=== PATIENT | male | born 1980 | race Two or more races ===

== ENCOUNTER 2020-07-15 10:22 | Emergency (ER) | payer OTHER, SELFPAY ==
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
[2020-07-15 10:31] VITALS: BP 141/83; PULSE 76; RESP 18; TEMP 36.6; O2SAT 97; BMI 26.5
--- NOTE | 2020-07-15 10:39 | XR_ITS ---
EXAMINATION: LUMBAR SPINE, THORACIC SPINE AND LEFT SHOULDER CLINICAL INFORMATION: Pain. COMPARISON: None TECHNIQUE: 3 views lumbar spine. Three-view dorsal spine. 4 views left shoulder. FINDINGS: LUMBAR SPINE: There is normal lumbar lordosis. The vertebral heights, alignment and disc heights are normal. There is no visible acute fracture, dislocation or subluxation. The SI joints are normal. DORSAL SPINE: There is normal thoracic kyphosis. The vertebral heights, alignment and disc heights are normal. There is no visible acute fracture, dislocation or subluxation. The paravertebral soft tissues are normal. LEFT SHOULDER: There is no visible acute fracture, dislocation or subluxation. No bony erosive changes. The soft tissues are normal. XR/XR thoracic spine 2V IMPRESSION: Unremarkable left shoulder exam. Unremarkable dorsal spine exam with no visible acute fracture seen. Unremarkable lumbar spine exam with no acute fracture seen.
--- NOTE | 2020-07-15 10:39 | XR_ITS ---
EXAMINATION: LUMBAR SPINE, THORACIC SPINE AND LEFT SHOULDER CLINICAL INFORMATION: Pain. COMPARISON: None TECHNIQUE: 3 views lumbar spine. Three-view dorsal spine. 4 views left shoulder. FINDINGS: LUMBAR SPINE: There is normal lumbar lordosis. The vertebral heights, alignment and disc heights are normal. There is no visible acute fracture, dislocation or subluxation. The SI joints are normal. DORSAL SPINE: There is normal thoracic kyphosis. The vertebral heights, alignment and disc heights are normal. There is no visible acute fracture, dislocation or subluxation. The paravertebral soft tissues are normal. LEFT SHOULDER: There is no visible acute fracture, dislocation or subluxation. No bony erosive changes. The soft tissues are normal. XR/XR lumbar spine 2-3V IMPRESSION: Unremarkable left shoulder exam. Unremarkable dorsal spine exam with no visible acute fracture seen. Unremarkable lumbar spine exam with no acute fracture seen.
--- NOTE | 2020-07-15 10:39 | XR_ITS ---
EXAMINATION: LUMBAR SPINE, THORACIC SPINE AND LEFT SHOULDER CLINICAL INFORMATION: Pain. COMPARISON: None TECHNIQUE: 3 views lumbar spine. Three-view dorsal spine. 4 views left shoulder. FINDINGS: LUMBAR SPINE: There is normal lumbar lordosis. The vertebral heights, alignment and disc heights are normal. There is no visible acute fracture, dislocation or subluxation. The SI joints are normal. DORSAL SPINE: There is normal thoracic kyphosis. The vertebral heights, alignment and disc heights are normal. There is no visible acute fracture, dislocation or subluxation. The paravertebral soft tissues are normal. LEFT SHOULDER: There is no visible acute fracture, dislocation or subluxation. No bony erosive changes. The soft tissues are normal. XR/XR shoulder LT min 2V IMPRESSION: Unremarkable left shoulder exam. Unremarkable dorsal spine exam with no visible acute fracture seen. Unremarkable lumbar spine exam with no acute fracture seen.
[2020-07-15] MEDS: Ketorolac Tromethamine 30 MG/ML VIAL IM (10:54)
[2020-07-15] MEDS: Lidocaine 4 % Patch ADH..PATCH 2 PATCH TRANSDERMA (10:55)
--- NOTE | 2020-07-15 11:32 | PC.NURSE ---
PT STATING HE NEEDS TO LEAVE, CANT YOU CALL ME WITH MY X RAY RESULTS, IM NOT TRYING TO GET COVID HERE, I HAVE COPD. PROVIDER NOTIFIED.
== END 2020-07-15 11:41 | disposition home or self-care (01) ==
PROVIDERS: Emergency Provider Emergency Medicine; PCP Internal Medicine
DX: S39.012A Strain of muscle, fascia and tendon of lower back, initial encounter (principal); M54.6 Pain in thoracic spine; M25.512 Pain in left shoulder; I10 Essential (primary) hypertension; X58.XXXA Exposure to other specified factors, initial encounter; Y93.9 Activity, unspecified; Y92.9 Unspecified place or not applicable; Y99.9 Unspecified external cause status; Z79.899 Other long term (current) drug therapy
CPT/HCPCS: 72070; 72100; 73030; 96372; 99282; 99284; J1885

== ENCOUNTER 2020-08-13 15:19 | Outpatient (REF) | payer OTHER, SELFPAY | END 2020-08-13 15:20 | disposition home or self-care (01) | LOC: HO.LAB 15:19 | PROVIDERS: Visit Provider Internal Medicine | DX: Z20.828 Contact with and (suspected) exposure to other viral communicable diseases (principal) | CPT/HCPCS: 36415; C9803; U0003 ==

== ENCOUNTER 2020-09-23 12:23 | Emergency (ER) | payer OTHER, SELFPAY ==
--- NOTE | ~2020-09-23 | XR_ITS ---
EXAMINATION: XR LUMBOSACRAL SPINE CLINICAL INFORMATION: Fall, injury COMPARISON: 07/15/2020 TECHNIQUE: AP and lateral views of the lumbar spine with an additional coned down lateral spot view of the lumbosacral junction. FINDINGS: 5 non-rib bearing lumbar type vertebral bodies are seen. The vertebral bodies and posterior elements are normal. The disc spaces are preserved and the vertebral alignment is normal. The paraspinal soft tissues are normal. XR/XR lumbar spine 2-3V IMPRESSION: Normal lumbar spine series.
--- NOTE | ~2020-09-23 | XR_ITS ---
EXAMINATION: XR SHOULDER, LEFT CLINICAL INFORMATION: Fall COMPARISON: 07/15/2020 TECHNIQUE: AP external rotation, Grashey, scapular Y, and axillary views of the left shoulder. FINDINGS: The bones and soft tissues are normal. No fracture. Glenohumeral and acromioclavicular alignment is anatomic with normal joint space. No abnormal soft tissue calcifications. XR/XR shoulder LT min 2V IMPRESSION: Normal left shoulder.
[2020-09-23 12:40] VITALS: BP 129/63; PULSE 84; RESP 18; TEMP 36.4; O2SAT 96; BMI 30.1
--- NOTE | 2020-09-23 13:11 | ED.FALL ---
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 <NICHOLAS Abrams Last Filed: 10/03/20 15:02> Time Seen by Provider: 09/23/20 13:11 <NICHOLAS Abrams Last Filed: 10/03/20 15:02> History of Present Illness HPI Narrative: Patient complains of left shoulder pain and back pain after slip and fall on the stairs is coming down the stairs which were wet slipped fell backwards and hurt his back and left shoulder, no loss of consciousness no neck pain no numbness or weakness, pain is moderate and this happened today <NICHOLAS Abrams Last Filed: 10/03/20 15:02> Related Data Home Medications: Previous Rx's Medication Instructions Recorded acetaminophen [Tylenol Arthritis 650 mg PO Q8H PRN #30 tab 07/15/20 Pain] cyclobenzaprine 10 mg PO TID PRN #10 tab 07/15/20 lidocaine [Lidoderm] 1 patch TOPICAL DAILY #15 ea 07/15/20 naproxen 500 mg PO BID PRN #20 tab 07/15/20 cyclobenzaprine 5 mg PO TID PRN #14 tab 09/23/20 ibuprofen 600 mg PO Q6H PRN #14 tab 09/23/20 oxycodone-acetaminophen [Percocet] 1 tab PO Q6H PRN #10 tab 09/23/20 <NICHOLAS Abrams Last Filed: 10/03/20 15:02> Allergies/Adverse Reactions: Allergies Allergy/AdvReac Type Severity Reaction Status Date / Time No Known Allergies Allergy Verified 10/01/20 14:19 <NICHOLAS Abrams Last Filed: 10/03/20 15:02> Review of Systems Review of Systems: Positive for left shoulder pain and back pain Negatives are no dizziness no weakness no confusion no headache no head injury no loss of consciousness no neck pain no numbness no weakness no paresthesias no chest pain no abdominal pain <NICHOLAS Abrams Last Filed: 10/03/20 15:02> [facility] Past Medical History Source: nursing notes reviewed <NICHOLAS Abrams Last Filed: 10/03/20 15:02> Medical History: Medical History COPD (chronic obstructive pulmonary disease) <NICHOLAS Abrams - Last Filed: 10/03/20 15:02> Social History Social History: Social History Alcohol intake: never Smoking Status: Never smoker Current occupational status: employed Current occupation: CONSTRUCTION <NICHOLAS Abrams - Last Filed: 10/03/20 15:02> Physical Exam Vital Signs: Vital Signs: Last Vital Signs Temp 97.6 F 09/23/20 12:40 Pulse 84 09/23/20 12:40 Resp 18 09/23/20 12:40 BP 129/63 09/23/20 12:40 Pulse Ox 96 09/23/20 12:40 Body Mass Index 30.1 <NICHOLAS Abrams - Last Filed: 10/03/20 15:02> Vital Signs: Last Vital Signs Temp 97.6 F 09/23/20 12:40 Pulse 84 09/23/20 12:40 Resp 18 09/23/20 12:40 BP 129/63 09/23/20 12:40 Pulse Ox 96 09/23/20 12:40 Body Mass Index 30.1 <Gabe Mendoza MD - Last Filed: 10/29/20 16:43> General appearance is no acute distress, cooperative A&O x3 Head is normocephalic atraumatic Neck is supple The chest is clear to auscultation bilaterally, there is no rib tenderness there is no sternum tenderness there is no chest wall tenderness The abdomen is soft nontender The back had diffuse lower lumbar tenderness including midline, the skin was normal without ecchymosis, there was no CVA tenderness there was no bony point tenderness or deformity Extremities the left shoulder had restrictive range of motion on extension abduction and external rotation and there was some tenderness around the deltoid and trapezius area, was neurovascular intact distal, normal in appearance without ecchymosis or laceration or swelling Other extremities were normal Skin no lacerations Neuro no focal deficits <NICHOLAS Abrams - Last Filed: 10/03/20 15:02> Course Course Course Narrative: X-rays of left shoulder and lumbar spine were normal, and patient was discharged with diagnosis of left shoulder sprain and back strain <NICHOLAS Abrams - Last Filed: 10/03/20 15:02> I have reviewed the chart <Gabe Mendoza MD - Last Filed: 10/29/20 16:43> Discharge Plan Discharge Clinical Impression: Sprain of left shoulder, Back pain <NICHOLAS Abrams - Last Filed: 10/03/20 15:02> Patient Disposition: Home, Self-Care <NICHOLAS Abrams - Last Filed: 10/03/20 15:02> Additional Instructions: Follow with orthopedist if needed for left shoulder, follow with primary doctor for back pain if needed Return any concerns X-rays of left shoulder and the back were negative <NICHOLAS Abrams - Last Filed: 10/03/20 15:02> Prescriptions: New cyclobenzaprine 5 mg tablet 5 mg PO TID PRN (Reason: muscle spasm) Qty: 14 RF: 0 oxycodone-acetaminophen [Percocet] 5-325 mg tablet 1 tab PO Q6H PRN (Reason: pain) Qty: 10 RF: 0 ibuprofen 600 mg tablet 600 mg PO Q6H PRN (Reason: pain) Qty: 14 RF: 0 No Action cyclobenzaprine 10 mg tablet 10 mg PO TID PRN (Reason: muscle spasm) Qty: 10 RF: 0 acetaminophen [Tylenol Arthritis Pain] 650 mg tablet extended release 650 mg PO Q8H PRN (Reason: pain) Qty: 30 RF: 0 lidocaine [Lidoderm] 5 % adhesive patch,medicated 1 patch topical DAILY Qty: 15 RF: 0 naproxen 500 mg tablet 500 mg PO BID PRN (Reason: pain) Qty: 20 RF: 0 <NICHOLAS Abrams - Last Filed: 10/03/20 15:02> Referrals: Kris Chiu MD [Physician] - 2 days (Left shoulder pain after fall, x-ray negative) <NICHOLAS Abrams - Last Filed: 10/03/20 15:02> Stand Alone Forms: Work/School Release <NICHOLAS Abrams - Last Filed: 10/03/20 15:02> Interventions: ED Discharge Assessment Last Done: 09/23/20 14:38 <NICHOLAS Abrams - Last Filed: 10/03/20 15:02> Discharge Date/Time: 09/23/20 14:38 <NICHOLAS Abrams - Last Filed: 10/03/20 15:02>
== END 2020-09-23 14:38 | disposition home or self-care (01) ==
PROVIDERS: Emergency Provider Emergency Medicine; PCP Internal Medicine
DX: S43.402A Unspecified sprain of left shoulder joint, initial encounter (principal); W10.8XXA Fall (on) (from) other stairs and steps, initial encounter; M54.9 Dorsalgia, unspecified; Y93.89 Activity, other specified; Y92.018 Other place in single-family (private) house as the place of occurrence of the external cause; Y99.9 Unspecified external cause status
CPT/HCPCS: 72100; 73030; 99283

== ENCOUNTER → 2020-10-01 14:13 | Outpatient (BNVA) | payer OTHER, SELFPAY | PROVIDERS: PCP Internal Medicine; Visit Provider Physician Assistant | DX: M75.52 Bursitis of left shoulder (principal) | CPT/HCPCS: 20610; 99202; J1040 ==

== ENCOUNTER 2020-10-28 08:03 | Outpatient (REF) | payer OTHER, SELFPAY | END 2020-10-28 08:04 | disposition home or self-care (01) | LOC: HO.LAB 08:03 | PROVIDERS: Visit Provider Internal Medicine | DX: Z20.822 Contact with and (suspected) exposure to COVID-19 (principal) | CPT/HCPCS: 36415; C9803; U0003; U0005 ==

== ENCOUNTER 2020-11-05 09:22 | Outpatient (REF) | payer OTHER, SELFPAY ==
[2020-11-05 11:22] LABS: SARS COV2 PCR INHOUSE POSITIVE (Negative)
== END 2020-11-05 09:23 | disposition home or self-care (01) ==
LOC: HO.LAB 09:22
PROVIDERS: Visit Provider Internal Medicine
DX: Z20.822 Contact with and (suspected) exposure to COVID-19 (principal)
CPT/HCPCS: C9803; U0003

== ENCOUNTER 2020-11-17 01:35 | Emergency (ER) | payer OTHER, SELFPAY ==
[2020-11-17 01:45] VITALS: BP 138/71; PULSE 75; RESP 16; TEMP 37; O2SAT 96; BMI 31.5
--- NOTE | 2020-11-17 01:51 | PC.NURSE ---
Pt with +bowel sounds in all four quadrants, non tender abd to palp. Skin WD, resp reg and even.
--- NOTE | 2020-11-17 02:03 | PC.NURSE ---
MD in to bedside for primary eval
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
[2020-11-17] MEDS: Magnesium Hydrox/Alum Hydrox 30 ML ORAL.SUSP PO (02:20)
[2020-11-17] MEDS: Lidocaine HCl Viscous 2 % 15 ML SOLUTION 10 ML MUCOUS MEM (02:20)
--- NOTE | 2020-11-17 02:30 | PC.NURSE ---
Iv access obtained to left ac, labs drawn and sent to lab, results pending. Pt medicated with GI cocktail per oct. Pt already reporting some relief.
[2020-11-17 02:31] LABS: MANUAL DIFF FLAG NO
[2020-11-17 02:32] LABS: Basophils Percent Auto 0.5 % (0-2); Eosinophils Absolute Auto 0.2 X10*3/uL (0.0-0.4); Eosinophils Percent Auto 3.3 % (0-4); Hematocrit 40.1 % (42-52); Hemoglobin 13.6 g/dl (14.0-18.0); Imm Gran Abs Auto 0.02 X10*3/uL (0.00-0.03); Imm Gran Pct Auto 0.3 % (0.0-0.4); Lymphocytes Absolute Auto 1.4 X10*3/uL (1.2-4.9); Lymphocytes Percent Auto 21.3 % (20-40); Mean Corpuscular HGB Conc 33.9 g/dl (31.0-36.0); Mean Corpuscular Volume 91.3 fL (80-98); Mean Platelet Volume 9.1 fL (9.4-12.4); Monocytes Absolute Auto 0.8 X10*3/uL (0.1-1.2); Monocytes Percent Auto 11.3 % (2-11); Neutrophils Absolute Auto 4.2 X10*3/uL (2.0-8.3); Neutrophils Percent Auto 63.3 % (45-73); Platelet Count 223 X10*3/uL (160-400); Red Blood Count 4.39 X10*6/uL (4.60-5.80); Red Cell Distribution Width 12.4 % (11.0-16.0); White Blood Count 6.6 X10*3/uL (4.8-10.8)
[2020-11-17 02:57] LABS: Alanine Aminotransferase 23 U/L (0-40); Albumin Level 4.1 g/dL (3.5-5.0); Alkaline Phosphatase 92 U/L (39-117); Anion Gap 14 (12-20); Aspartate Amino Transferase 23 U/L (5-37); Bilirubin Total 0.4 mg/dL (0.0-1.0); Blood Urea Nitrogen 18 mg/dL (9-16); Calcium 8.5 mg/dL (8.4-10.2); Carbon Dioxide 24 mmol/L (22-29); Chloride 106 mmol/L (96-108); Creatinine Clr Calc Pharmacy 98.5; Estimated Glomerular Filt Rate > 60; Glucose Random 116 mg/dL (60-115); Lipase 95 U/L (8-78); Potassium 3.7 mmol/L (3.3-5.1); Sodium 140 mmol/L (135-145)
[2020-11-17] MEDS: Acetaminophen 325 MG TABLET 975 MG PO (03:17)
[2020-11-17] MEDS: Ibuprofen 400 MG TABLET PO (03:18)
[2020-11-17 03:50] VITALS: BP 119/66; PULSE 69; RESP 16; TEMP 36.7; O2SAT 95
== END 2020-11-17 03:54 | disposition home or self-care (01) ==
PROVIDERS: Emergency Provider Student in an Organized Health Care Education/Training Program; PCP Internal Medicine
DX: K85.90 Acute pancreatitis without necrosis or infection, unspecified (principal); R10.13 Epigastric pain
CPT/HCPCS: 36415; 80053; 83690; 85025; 99283; 99284

== ENCOUNTER 2020-12-03 | Emergency (ER) | payer OTHER, SELFPAY | END 2020-12-03 01:46 | disposition left against medical advice (07) | PROVIDERS: Emergency Provider Emergency Medicine; PCP Internal Medicine | DX: R10.9 Unspecified abdominal pain (principal) ==

== ENCOUNTER 2020-12-17 04:33 | Emergency (ER) | payer OTHER, SELFPAY ==
--- NOTE | ~2020-12-17 | CT_ITS ---
EXAMINATION: CT ABDOMEN AND PELVIS WITH CONTRAST CLINICAL INFORMATION: Epigastric pain COMPARISON: No prior CT for comparison. TECHNIQUE: Multidetector volumetric images were obtained from the superior aspect of the liver through the pubic symphysis following administration 85 mL of Omnipaque 350 intravenous contrast. Sagittal and coronal reformatted images were obtained on the technologist's workstation. Oral contrast: No This CT examination was performed using dose optimization techniques as appropriate, variously including the following: *Automated exposure control *Adjustment of mA and/or kV according to patient size (this includes techniques or standardized protocols for targeted exams where dose is matched to indication/reason for exam; i.e. extremities or head) *Use of iterative reconstruction technique DLP: 698 mGy-cm FINDINGS: LUNG BASES: Bibasilar atelectasis. The visualized cardiac structures are unremarkable. LIVER, GALLBLADDER, AND BILIARY TREE: The liver is normal in size, shape, and attenuation. No focal hepatic lesion or biliary ductal dilatation is present. The gallbladder is contracted with no evidence of radiopaque gallstones, gallbladder wall thickening, or obvious pericholecystic inflammatory changes. PANCREAS: Unremarkable. SPLEEN: Unremarkable. ADRENAL GLANDS: Unremarkable. KIDNEYS AND URETERS: The kidneys are normal in size, shape, and attenuation. No hydronephrosis, hydroureter, or calculi seen. No perinephric stranding. BLADDER: Unremarkable. GASTROINTESTINAL TRACT: Normal distention of the stomach. Normal caliber small bowel without obstruction. There is suggestion of mild wall thickening at the pylorus/first portion of the duodenum. No colonic wall thickening or acute inflammatory change. Normal appendix. No free air or free fluid. ABDOMINAL WALL: No significant hernia is appreciated. LYMPH NODES: Normal. VASCULAR: Unremarkable. PELVIC VISCERA: Normal size prostate with central calcifications. OSSEOUS STRUCTURES: Unremarkable. CT/CT abdomen pelvis w con IMPRESSION: Suggestion of mild wall thickening in the pylorus and first portion of the duodenum. This could be inflammatory or infectious. Ulcer is possible. No free air. Otherwise no acute findings in the abdomen or pelvis. No acute inflammatory changes. Atelectasis at the lung bases.
[2020-12-17 04:39] VITALS: BP 132/89; PULSE 72; RESP 16; TEMP 36.1; O2SAT 98; BMI 31.8
--- NOTE | 2020-12-17 05:00 | ECG_ITS ---
Test Reason : ABDPAIN Blood Pressure : / mmHG Vent. Rate : 064 BPM Atrial Rate : 064 BPM P-R Int : 142 ms QRS Dur : 092 ms QT Int : 412 ms P-R-T Axes : 073 056 028 degrees QTc Int : 425 ms Normal sinus rhythm Normal ECG When compared with ECG of 26-MAR-2019 07:43, No significant change was found Referred By: Gris Hill Electronically Signed By:Juice Gaines
--- NOTE | 2020-12-17 05:02 | ED.ABDPAIN ---
HPI - Abdominal Pain General Chief Complaint: Abdominal Pain Stated Complaint: pancreas pain Time Seen by Provider: 12/17/20 04:50 Source: patient Mode of arrival: ambulatory Limitations: no limitations History of Present Illness HPI narrative: Patient comes emergency room complaining of epigastric pain. Patient states a month ago he was diagnosed with pancreatitis. Patient has been trying to change his diet, avoid using alcohol. Patient had alcohol 3 days ago for mother's Day. Patient denies vomiting or diarrhea. Patient states the pain has been present for a month, however last night it started getting severe. Related Data Previous Rx's Medication Instructions Recorded acetaminophen [Tylenol Arthritis 650 mg PO Q8H PRN #30 tab 07/15/20 Pain] cyclobenzaprine 10 mg PO TID PRN #10 tab 07/15/20 lidocaine [Lidoderm] 1 patch TOPICAL DAILY #15 ea 07/15/20 naproxen 500 mg PO BID PRN #20 tab 07/15/20 cyclobenzaprine 5 mg PO TID PRN #14 tab 09/23/20 ibuprofen 600 mg PO Q6H PRN #14 tab 09/23/20 oxycodone-acetaminophen [Percocet] 1 tab PO Q6H PRN #10 tab 09/23/20 Allergies Allergy/AdvReac Type Severity Reaction Status Date / Time No Known Allergies Allergy Verified 10/01/20 14:19 Review of Systems Review of Systems Constitutional : No Weight loss, No Fever, No Chills, No Night Sweats, No Fatigue, No Malaise ENT/Mouth : No Hearing loss, No Ear Pain, No Nasal Congestion, No Sinus Pain, No Hoarseness, No sore throat, No Rhinorrhea, No Swallowing Difficulty Eyes: No Eye Pain, No Swelling, No Redness, No Foreign Body, No Discharge, No Vision Changes Cardiovascular : No Chest Pain, No SOB, No Dyspnea on Exertion, No Orthopnea, No Edema, No Palpitations Respiratory : No Cough, No Sputum, No Wheezing, No Smoke Exposure, No Dyspnea Gastrointestinal : No Nausea, No Vomiting, No Diarrhea, No Constipation, complaining of epigastric pain, No Hematochezia, No Melena Genitourinary : no irregular bleeding, No Dysuria, No Urinary Frequency, No Hematuria, No Urinary Incontinence, No Urgency, No Flank Pain, No Urinary Flow Changes, No Hesitancy Musculoskeletal : No joint pain, No Myalgias, No Joint Swelling Skin : No Skin Lesions, No rash Neuro : No Weakness, No Numbness, No Paresthesias, No Loss of Consciousness, No Dizziness, No Headache Psych : No Anxiety/Panic, No Depression, No SI/HI/AH/VH, No Social Issues, Heme/Lymph: No Bruising, No Bleeding,No Lymphadenopathy Endocrine : No Polyuria, No Polydipsia, No Temperature Intolerance Physical Exam Vital Signs: Vital Signs: Last Vital Signs Temp 97 F 12/17/20 04:39 Pulse 66 12/17/20 05:34 Resp 18 12/17/20 05:34 BP 139/72 12/17/20 05:34 Pulse Ox 98 12/17/20 05:34 Body Mass Index 31.8 Appearance: Alert. Oriented X3. No acute distress. Eyes: Pupils equal, round and reactive to light. ENT: Pharynx normal. Neck: Normal inspection. Neck supple. No lymph nodes noted. No crepitus CVS: Normal heart rate and rhythm. Pulses normal. Normal S1 and S2 Respiratory: No respiratory distress. Breath sounds normal. No Wheezing. No rales Abdomen: Soft, moderate tenderness to palpation over epigastric area, negative Goins sign. No rigidity. No distention. good BS x4 Skin: Skin warm and dry. Normal skin color. Normal skin turgor. Extremities: No lower extremity edema. No lower extremity edema. No Lacerations. No Rash Neuro: Oriented X 3. No motor deficit. No sensory deficit. Moving all extermities. No slurred speech. Course Course Course Narrative: Lipase and CT pending. Sign out given to Dr. Guadarrama. MDM - Abdominal Pain Lab Data Result diagrams: 12/17/20 05:33 12/17/20 05:32 Labs: Lab Results 12/17/20 12/17/20 Range/Units 05:32 05:33 WBC 7.7 (4.8-10.8) X10*3/uL RBC 4.32 L (4.60-5.80) X10*6/uL Hgb 13.4 L (14.0-18.0) g/dl Hct 39.4 L (42-52) % MCV 91.2 (80-98) fL MCH 31.0 (27.0-33.0) pg MCHC 34.0 (31.0-36.0) g/dl RDW 12.3 (11.0-16.0) % Plt Count 234 (160-400) X10*3/uL MPV 9.5 (9.4-12.4) fL Immature Gran % (Auto) 0.4 (0.0-0.4) % Neut % (Auto) 72.0 (45-73) % Lymph % (Auto) 13.1 L (20-40) % [place] % (Auto) 12.1 H (2-11) % Eos % (Auto) 2.1 (0-4) % Baso % (Auto) 0.3 (0-2) % Lymph # (Auto) 1.0 L (1.2-4.9) X10*3/uL [place] # (Auto) 0.9 (0.1-1.2) X10*3/uL Eos # (Auto) 0.2 (0.0-0.4) X10*3/uL Baso # (Auto) 0.0 (0.0-0.2) X10*3/uL Abs Immat Gran (auto) 0.03 (0.00-0.03) X10*3/uL Absolute Neuts (auto) 5.5 (2.0-8.3) X10*3/uL Absolute Nucleated RBC 0.000 (0.0-0.012) X10*3/uL Nucleated RBC % (auto) 0.0 (0.0-0.2) /100WBC Sodium 139 (135-145) mmol/L Potassium 4.3 (3.3-5.1) mmol/L Chloride 107 (96-108) mmol/L Carbon Dioxide 23 (22-29) mmol/L Anion Gap 13 (12-20) BUN 18 H (9-16) mg/dL Creatinine 1.09 (0.5-1.4) mg/dL Estim Creat Clear Calc 107.1 Estimated GFR > 60 Random Glucose 120 H (60-115) mg/dL Calcium 8.6 (8.4-10.2) mg/dL Total Bilirubin < 0.2 (0.0-1.0) mg/dL Direct Bilirubin < 0.2 (0.0-0.5) mg/dL AST 24 (5-37) U/L ALT 29 (0-40) U/L Alkaline Phosphatase 106 (39-117) U/L Total Protein 6.9 (6.5-8.0) g/dL Albumin 4.0 (3.5-5.0) g/dL Triglycerides 70 mg/dL Cholesterol 155 mg/dL LDL Cholesterol, Calc 92 mg/dl HDL Cholesterol 49 mg/dL ECG Data Attestation: I personally reviewed and interpreted this ECG as follows: (Normal sinus rhythm, heart rate 64, nonspecific [address] segment elevation in leads V4 V5 V6, no reciprocal changes, QTC 425) Discharge Plan Discharge Prescriptions: No Action cyclobenzaprine 10 mg tablet 10 mg PO TID PRN (Reason: muscle spasm) Qty: 10 RF: 0 acetaminophen [Tylenol Arthritis Pain] 650 mg tablet extended release 650 mg PO Q8H PRN (Reason: pain) Qty: 30 RF: 0 lidocaine [Lidoderm] 5 % adhesive patch,medicated 1 patch topical DAILY Qty: 15 RF: 0 naproxen 500 mg tablet 500 mg PO BID PRN (Reason: pain) Qty: 20 RF: 0 cyclobenzaprine 5 mg tablet 5 mg PO TID PRN (Reason: muscle spasm) Qty: 14 RF: 0 oxycodone-acetaminophen [Percocet] 5-325 mg tablet 1 tab PO Q6H PRN (Reason: pain) Qty: 10 RF: 0 ibuprofen 600 mg tablet 600 mg PO Q6H PRN (Reason: pain) Qty: 14 RF: 0 PMFSH Past Medical History Medical History (Updated 12/17/20 @ 05:03 by Gris Hill MD) COPD (chronic obstructive pulmonary disease) Pancreatitis Social History Social History Alcohol intake: current Alcohol intake frequency: a few times a month Smoking Status: Never smoker Advance Directives: No Advance Directives Information Provided: No Current occupational status: employed Current occupation: CONSTRUCTION
[2020-12-17] MEDS: Morphine Sulfate 4 MG/ML CARTRIDGE IVPUSH (05:25)
[2020-12-17] MEDS: 0.9 % Sodium Chloride 1,000 ML 999 ML IVCONT (05:25)
[2020-12-17 05:34] VITALS: BP 139/72; PULSE 66; RESP 18; O2SAT 98
[2020-12-17 05:40] LABS: Basophils Percent Auto 0.3 % (0-2); Eosinophils Absolute Auto 0.2 X10*3/uL (0.0-0.4); Eosinophils Percent Auto 2.1 % (0-4); Hematocrit 39.4 % (42-52); Hemoglobin 13.4 g/dl (14.0-18.0); Imm Gran Abs Auto 0.03 X10*3/uL (0.00-0.03); Imm Gran Pct Auto 0.4 % (0.0-0.4); Lymphocytes Percent Auto 13.1 % (20-40); MANUAL DIFF FLAG NO; Mean Corpuscular Volume 91.2 fL (80-98); Mean Platelet Volume 9.5 fL (9.4-12.4); Monocytes Absolute Auto 0.9 X10*3/uL (0.1-1.2); Monocytes Percent Auto 12.1 % (2-11); Neutrophils Absolute Auto 5.5 X10*3/uL (2.0-8.3); Platelet Count 234 X10*3/uL (160-400); Red Blood Count 4.32 X10*6/uL (4.60-5.80); Red Cell Distribution Width 12.3 % (11.0-16.0); White Blood Count 7.7 X10*3/uL (4.8-10.8)
[2020-12-17 06:21] LABS: Alanine Aminotransferase 29 U/L (0-40); Alkaline Phosphatase 106 U/L (39-117); Anion Gap 13 (12-20); Aspartate Amino Transferase 24 U/L (5-37); Bilirubin Direct < 0.2 mg/dL (0.0-0.5); Bilirubin Total < 0.2 mg/dL (0.0-1.0); Blood Urea Nitrogen 18 mg/dL (9-16); Calcium 8.6 mg/dL (8.4-10.2); Carbon Dioxide 23 mmol/L (22-29); Chloride 107 mmol/L (96-108); Cholesterol 155 mg/dL; Creatinine Clr Calc Pharmacy 107.1; Estimated Glomerular Filt Rate > 60; Glucose Random 120 mg/dL (60-115); HDL Cholesterol 49 mg/dL; LDL Cholesterol Calculated 92 mg/dl; Potassium 4.3 mmol/L (3.3-5.1); Sodium 139 mmol/L (135-145); Total Protein 6.9 g/dL (6.5-8.0); Triglycerides 70 mg/dL
[2020-12-17] MEDS: iohexoL 350 MG/ML 100 ML INFUS..BTL 85 ML IV (06:40)
--- NOTE | 2020-12-17 07:24 | PC.NURSE ---
pt reports feeling better pain at 09/17, pt states that he needs to go home because he needs to be at work at 0800. md henderson
[2020-12-17 07:39] LABS: Lipase 105 U/L (8-78)
== END 2020-12-17 07:40 | disposition home or self-care (01) ==
PROVIDERS: Emergency Medicine; Emergency Provider Emergency Medicine Emergency Medical Services; PCP Internal Medicine
DX: R10.13 Epigastric pain (principal); Z79.899 Other long term (current) drug therapy
CPT/HCPCS: 36415; 74177; 80048; 80061; 80076; 83690; 85025; 93005; 96365; 96375; 99284; J2270; Q9967

== ENCOUNTER 2021-06-29 17:02 | Emergency (ER) | payer OTHER, SELFPAY ==
--- NOTE | ~2021-06-29 | XR_ITS ---
EXAMINATION: XR CHEST CLINICAL INFORMATION: Shortness of breath. COMPARISON: Multiple priors, most recent chest radiograph dated 03/26/2019. TECHNIQUE: Frontal view of the chest was obtained. FINDINGS: The lungs are clear. The cardiomediastinal silhouette is normal in size. There is no pleural effusion or pneumothorax. No acute osseous abnormality. XR/XR chest 1V IMPRESSION: No acute cardiopulmonary findings.
--- NOTE | 2021-06-29 18:50 | ECG_ITS ---
Test Reason : Chest Tightness Blood Pressure : / mmHG Vent. Rate : 115 BPM Atrial Rate : 115 BPM P-R Int : 146 ms QRS Dur : 082 ms QT Int : 328 ms P-R-T Axes : 073 068 060 degrees QTc Int : 453 ms Sinus tachycardia Otherwise normal ECG When compared with ECG of 17-DEC-2020 06:03, Vent. rate has increased BY 51 BPM Referred By: Generic ED Physician Electronically Signed By:KINGSLEY VINSON MD
[2021-06-29 19:07] VITALS: BP 138/73; PULSE 91; RESP 18; TEMP 36.6; O2SAT 93; BMI 31.5
--- NOTE | 2021-06-29 20:03 | ED_ITS ---
HPI - URI/Sore Throat General Chief Complaint: Upper Respiratory Symptoms Stated Complaint: Difficulty breathing/Chest tightness Time Seen by Provider: 06/29/21 19:59 Source: patient Mode of arrival: ambulatory Limitations: no limitations History of Present Illness HPI Narrative: 41-year-old male with a history of COPD, hypothyroidism here with complaints of shortness of breath with chest tightness and wheezing with a dry cough for the last few days. No fevers or chills. Cough is not productive. No leg swelling or pain or weight gain. Patient tells me that he was working with some chemicals at work and feels like this may have triggered his symptoms. Related Data Previous Rx's Medication Instructions Recorded acetaminophen 650 mg 650 mg PO Q8H PRN #30 tab 07/15/20 tablet,extended release (Tylenol Arthritis Pain) cyclobenzaprine 10 mg tablet 10 mg PO TID PRN #10 tab 07/15/20 lidocaine 5 % topical patch 1 patch TOPICAL DAILY #15 ea 07/15/20 (Lidoderm) naproxen 500 mg tablet 500 mg PO BID PRN #20 tab 07/15/20 cyclobenzaprine 5 mg tablet 5 mg PO TID PRN #14 tab 09/23/20 ibuprofen 600 mg tablet 600 mg PO Q6H PRN #14 tab 09/23/20 oxycodone-acetaminophen 5 mg-325 1 tab PO Q6H PRN #10 tab 09/23/20 mg tablet (Percocet) prednisone 20 mg tablet 40 mg PO DAILY #8 tab 06/29/21 Allergies Allergy/AdvReac Type Severity Reaction Status Date / Time No Known Allergies Allergy Verified 10/01/20 14:19 Review of Systems Review of Systems: Yes all other systems are reviewed and are negative Constitutional: Constitutional: Reports no additional constitutional complaints, Denies body ache(s), Denies chills, Denies fever(s), Denies headache(s) and Denies weakness Eyes: Eyes: Reports no additional eye complaints and Denies change in vision ENT: Reports system reviewed and no additional complaints, except as documented, Denies dizziness, Denies headache(s), Denies nasal congestion, Denies nasal discharge and Denies neck pain Cardiovascular: Cardiovascular: Reports no additional cardiovascular complaints, Reports chest pain (chest tightness), Denies leg edema and Reports dyspnea Respiratory: Respiratory: Reports no additional respiratory complaints, Rep orts cough, Reports dyspnea and Reports wheezing Gastrointestinal: Gastrointestinal: Reports no additional gastrointestinal complaints, Denies abdominal pain, Denies diarrhea, Denies nausea and Denies vomiting Genitourinary: Genitourinary: Denies urinary incontinence Musculoskeletal: Musculoskeletal: Reports no additional musculoskeletal complaints, Denies back pain, Denies arthralgias, Denies joint swelling, Denies neck pain, Denies numbness and Denies tingling Integumentary/Breasts: Skin/Breast: Reports system reviewed and no additional complaints, except as docu and Denies rash Neurologic: Denies Abnormal speech present, Denies dizziness, Denies headache(s), Denies numbness, Denies tingling and Denies weakness Allergic/Immunologic: Allergic/Immunologic: Reports wheezing PMFSH Past Medical History Attestation statement: The following information was validated with the patient. Source: old records reviewed and nursing notes reviewed Medical History COPD (chronic obstructive pulmonary disease) Pancreatitis Social History Social History Alcohol intake: current Alcohol intake frequency: does not drink Advance Directives: No Current occupational status: employed Current occupation: CONSTRUCTION Physical Exam Vital Signs: Vital Signs: Last Vital Signs Temp 98.4 F 06/29/21 21:39 Pulse 84 06/29/21 21:39 Resp 18 06/29/21 21:39 BP 132/72 06/29/21 21:39 Pulse Ox 98 06/29/21 21:39 Body Mass Index 31.5 Const: General: cooperative, healthy appearing, comfortable and no acute distress Orientation/consciousness: patient oriented x3 Limitations: no limitations HENMT: Head: Yes normal to inspection Ears: hearing grossly normal bilaterally and TM's normal bilaterally General nose exam: Normal external nose present Face and sinus: Yes normal facial exam Mouth: Normal oral and palatal mucosa present Throat: Yes posterior oropharynx normal, Yes tonsils normal and Yes uvula midline Eyes: General: appearance normal, both eyes and all related structures Pupils: Equal, round and reactive pupils present Neck: Neck: Yes normal visual inspection, Yes full ROM and Yes no lymphadenopathy Chest: Chest palpation & inspection: normal inspection of the chest Resp: Other: Diminished breath sounds throughout with mild expiratory wheezing +wheezing Effort & Inspection: normal respiratory effort Cardio: Rate: regular rate Rhythm: regular rhythm Peripheral pulses: Peripheral pulses 2+ throughout GI: Inspection: Yes normal to inspection Palpation (GI): Soft to palpation and nontender Auscultation: normal bowel sounds Back/Spine/Pelvis: Thoracic/Lumbar Spine: thoracic and lumbar spine normal to inspection Skin: General skin exam: no rashes or lesions noted Neuro: General: patient oriented x3, no focal motor deficits and normal sensation to monofilament Cranial nerves: Yes Equal, round and reactive pupils present Cognition (Neuro): normal cognition Speech: No Abnormal speech present Gait exam (Neuro): Normal gait present Motor exam (neuro): 5/5 motor strength present throughout Extrem: General: Yes normal to inspection, Yes no pedal edema and Yes no calf tenderness Course Course Course Narrative: 41-year-old male here with complaints of COPD exacerbation for the last few days triggered by exposure to some chemicals at work. On arrival the patient has diminished breath sounds with expiratory wheezing and audible wheezing on arrival. His room air saturation is 92%. Will check chest x-ray, COVID screen. Will give DuoNeb, IV Solu-Medrol and magnesium and reassess 2130- chest x-ray, labs, COVID screen, EKG are all unremarkable. Patient is feeling much improved and is ambulating around the department with oxygen satur ations greater than 96%. Likely COPD exacerbation. Will discharge home with course of prednisone. Patient tells me he has adequate albuterol at home. Reviewed worrisome signs and symptoms of when to return to the emergency department. Comfortable discharge home. MDM - URI/Sore Throat MDM Narrative Medical decision making narrative: pneumonia, COPD exacerbation Differential Diagnosis Differential diagnosis: Likely viral infection Medical Records Attestation: I reviewed the patient's medical records. Lab Data Attestation: I reviewed the patient's lab results. Result diagrams: 06/29/21 20:18 06/29/21 20:18 Labs: Lab Results 06/29/21 06/29/21 06/29/21 Range/Units 20:14 20:18 20:18 WBC 9.4 (4.8-10.8) X10*3/uL RBC 4.39 L (4.60-5.80) X10*6/uL Hgb 13.2 L (14.0-18.0) g/dl Hct 38.9 L (42.0-52.0) % MCV 88.6 (80.0-98.0) fL MCH 30.1 (27.0-33.0) pg MCHC 33.9 (31.0-36.0) g/dl RDW 13.2 (11.0-16.0) % Plt Count 239 (160-400) X10*3/uL MPV 9.6 (9.4-12.4) fL Immature Gran % (Auto) 0.3 (0.0-0.4) % Neut % (Auto) 77.0 H (45-73) % Lymph % (Auto) 11.7 L (20-40) % Vill[place]ba % (Auto) 9.4 (2-11) % Eos % (Auto) 1.3 (0-4) % Baso % (Auto) 0.3 (0-2) % Lymph # (Auto) 1.1 L (1.2-4.9) X10*3/uL [place] # (Auto) 0.9 (0.1-1.2) X10*3/uL Eos # (Auto) 0.1 (0.0-0.4) X10*3/uL Baso # (Auto) 0.0 (0.0-0.2) X10*3/uL Abs Immat Gran (auto) 0.03 (0.00-0.03) X10*3/uL Absolute Neuts (auto) 7.2 (2.0-8.3) x10*3/uL Absolute Nucleated RBC 0.000 (0.0-0.012) X10*3/uL Nucleated RBC % (auto) 0.0 (0.0-0.2) /100WBC Sodium 140 (135-145) mmol/L Potassium 3.9 (3.3-5.1) mmol/L Chloride 109 H (96-108) mmol/L Carbon Dioxide 24 (22-29) mmol/L Anion Gap 11 L (12-20) BUN 11 (9-16) mg/dL Creatinine 1.26 (0.5-1.4) mg/dL Estim Creat Clear Calc 91.3 Estimated GFR > 60 Random Glucose 120 H (60-115) mg/dL Calcium 8.8 (8.4-10.2) mg/dL Troponin I High Sens (<3.5-35.0) ng/L COVID-19 (ANJU) Negative (Negative) COVID-19 Clin Com See Note 06/29/21 Range/Units 20:18 WBC (4.8-10.8) X10*3/uL RBC (4.60-5.80) X10*6/uL Hgb (14.0-18.0) g/dl Hct (42.0-52.0) % MCV (80.0-98.0) fL MCH (27.0-33.0) pg MCHC (31.0-36.0) g/dl RDW (11.0-16.0) % Plt Count (160-400) X10*3/uL MPV (9.4-12.4) fL Immature Gran % (Auto) (0.0-0.4) % Neut % (Auto) (45-73) % Lymph % (Auto) (20-40) % [place] % (Auto) (2-11) % Eos % (Auto) (0-4) % Baso % (Auto) (0-2) % Lymph # (Auto) (1.2-4.9) X10*3/uL [place] # (Auto) (0.1-1.2) X10*3/uL Eos # (Auto) (0.0-0.4) X10*3/uL Baso # (Auto) (0.0-0.2) X10*3/uL Abs Immat Gran (auto) (0.00-0.03) X10*3/uL Absolute Neuts (auto) (2.0-8.3) x10*3/uL Absolute Nucleated RBC (0.0-0.012) X10*3/uL Nucleated RBC % (auto) (0.0-0.2) /100WBC Sodium (135-145) mmol/L Potassium (3.3-5.1) mmol/L Chloride (96-108) mmol/L Carbon Dioxide (22-29) mmol/L Anion Gap (12-20) BUN (9-16) mg/dL Creatinine (0.5-1.4) mg/dL Estim Creat Clear Calc Estimated GFR Random Glucose (60-115) mg/dL Calcium (8.4-10.2) mg/dL Troponin I High Sens 6.4 (<3.5-35.0) ng/L COVID-19 (ANJU) (Negative) COVID-19 Clin Com Imaging Data Chest x-ray: Attestation: I personally reviewed and interpreted this imaging study as follows: Radiologist's impression: EXAMINATION: XR CHEST CLINICAL INFORMATION: Shortness of breath. COMPARISON: Multiple priors, most recent chest radiograph dated 03/26/2019. TECHNIQUE: Frontal view of the chest was obtained. FINDINGS: The lungs are clear. The cardiomediastinal silhouette is normal in size. There is no pleural effusion or pneumothorax. No acute osseous abnormality. XR/XR chest 1V IMPRESSION: No acute cardiopulmonary findings. ECG Data Attestation: I personally reviewed and interpreted this ECG as follows: ECG interpretation date: 06/29/21 ECG interpretation time: 17:20 Interpretation: sinus tachycardia with a rate of 115, normal GA, normal QRS, normal QT Discharge Plan Discharge Clinical Impression: COPD (chronic obstructive pulmonary disease) Patient Disposition: Home, Self-Care Instructions: COPD (Chronic Obstructive Pulmonary Disease) (ED) Additional Instructions: start prednisone tomorrow continue your inhaler your COVID test was negative your blood work an EKG and chest x-ray were all normal Prescriptions: New prednisone 20 mg tablet 40 mg PO DAILY Qty: 8 RF: 0 No Action cyclobenzaprine 10 mg tablet 10 mg PO TID PRN (Reason: muscle spasm) Qty: 10 RF: 0 acetaminophen [Tylenol Arthritis Pain] 650 mg tablet extended release 650 mg PO Q8H PRN (Reason: pain) Qty: 30 RF: 0 lidocaine [Lidoderm] 5 % adhesive patch,medicated 1 patch topical DAILY Qty: 15 RF: 0 naproxen 500 mg tablet 500 mg PO BID PRN (Reason: pain) Qty: 20 RF: 0 cyclobenzaprine 5 mg tablet 5 mg PO TID PRN (Reason: muscle spasm) Qty: 14 RF: 0 oxycodone-acetaminophen [Percocet] 5-325 mg tablet 1 tab PO Q6H PRN (Reason: pain) Qty: 10 RF: 0 ibuprofen 600 mg tablet 600 mg PO Q6H PRN (Reason: pain) Qty: 14 RF: 0 Referrals: Osmany Cortés MD [Primary Care Provider] - 2 days Stand Alone Forms: Work/School Release Interventions: ED Discharge Assessment Last Done: 06/29/21 21:38 Discharge Date/Time: 06/29/21 21:40
[2021-06-29 20:11] VITALS: BP 131/78; PULSE 83; RESP 18; TEMP 36.4; O2SAT 96
[2021-06-29 20:20] VITALS: PULSE 90; O2SAT 97
[2021-06-29] MEDS: Albuterol/Iprat 2.5/0.5MG 3 ML AMPUL.NEB INHALE (20:20)
[2021-06-29] MEDS: methylPREDNISolone Sod Succ 125 MG/2 ML VIAL IVPUSH (20:20)
[2021-06-29] MEDS: Magnesium Sulfate/H2O 2 GM/50 ML PIGGYBACK IV (20:20)
[2021-06-29 20:22] LABS: MANUAL DIFF FLAG NO
[2021-06-29 20:26] LABS: Basophils Percent Auto 0.3 % (0-2); Eosinophils Absolute Auto 0.1 X10*3/uL (0.0-0.4); Eosinophils Percent Auto 1.3 % (0-4); Hematocrit 38.9 % (42.0-52.0); Hemoglobin 13.2 g/dl (14.0-18.0); Imm Gran Abs Auto 0.03 X10*3/uL (0.00-0.03); Imm Gran Pct Auto 0.3 % (0.0-0.4); Lymphocytes Absolute Auto 1.1 X10*3/uL (1.2-4.9); Lymphocytes Percent Auto 11.7 % (20-40); Mean Corpuscular HGB Conc 33.9 g/dl (31.0-36.0); Mean Corpuscular Hemoglobin 30.1 pg (27.0-33.0); Mean Corpuscular Volume 88.6 fL (80.0-98.0); Mean Platelet Volume 9.6 fL (9.4-12.4); Monocytes Absolute Auto 0.9 X10*3/uL (0.1-1.2); Monocytes Percent Auto 9.4 % (2-11); Neutrophils Absolute Auto 7.2 x10*3/uL (2.0-8.3); Platelet Count 239 X10*3/uL (160-400); Red Blood Count 4.39 X10*6/uL (4.60-5.80); Red Cell Distribution Width 13.2 % (11.0-16.0); White Blood Count 9.4 X10*3/uL (4.8-10.8)
[2021-06-29 20:39] LABS: Anion Gap 11 (12-20); Blood Urea Nitrogen 11 mg/dL (9-16); Calcium 8.8 mg/dL (8.4-10.2); Carbon Dioxide 24 mmol/L (22-29); Chloride 109 mmol/L (96-108); Creatinine Clr Calc Pharmacy 91.3; Estimated Glomerular Filt Rate > 60; Glucose Random 120 mg/dL (60-115); Potassium 3.9 mmol/L (3.3-5.1); Sodium 140 mmol/L (135-145)
[2021-06-29 20:41] LABS: COVID-19 Test Negative (Negative)
[2021-06-29 20:47] LABS: Troponin-I High Sensitivity 6.4 ng/L (<3.5-35.0)
[2021-06-29 21:39] VITALS: BP 132/72; PULSE 84; RESP 18; TEMP 36.9; O2SAT 98
== END 2021-06-29 21:40 | disposition home or self-care (01) ==
PROVIDERS: Emergency Provider Emergency Medicine; PCP Internal Medicine
DX: J44.9 Chronic obstructive pulmonary disease, unspecified (principal); Z20.822 Contact with and (suspected) exposure to COVID-19; R06.02 Shortness of breath
CPT/HCPCS: 36415; 71045; 80048; 84484; 85025; 87635; 93005; 96365; 96366; 96375; 99284; J2930; J3475

== ENCOUNTER 2022-02-26 07:06 | Outpatient (REF) | payer OTHER, SELFPAY ==
[2022-02-26 08:20] LABS: COVID-19 Test Negative (Negative)
== END 2022-02-26 07:07 | disposition home or self-care (01) ==
LOC: HO.LAB 07:06
PROVIDERS: Visit Provider Internal Medicine
DX: Z20.822 Contact with and (suspected) exposure to COVID-19 (principal)
CPT/HCPCS: 87635; C9803

== ENCOUNTER 2023-02-20 23:59 | Emergency (ER) | payer OTHER, SELFPAY ==
--- NOTE | ~2023-02-20 | XR_ITS ---
EXAMINATION: XR SHOULDER, RIGHT CLINICAL INFORMATION: Shoulder pain x5 days COMPARISON: None available. TECHNIQUE: AP external rotation, Grashey, scapular Y, and axillary views of the right shoulder. FINDINGS: The bones and soft tissues are unremarkable aside from some mild degenerative changes at the AC joint. No fracture. Glenohumeral and acromioclavicular alignment is anatomic. Glenohumeral joint appears normal. No abnormal soft tissue calcifications. XR/XR shoulder RT min 2V IMPRESSION: Mild degenerative changes at the AC joint.
[2023-02-21 00:04] VITALS: BP 148/82; PULSE 62; RESP 16; TEMP 36.1; O2SAT 95; BMI 27.5
--- NOTE | 2023-02-21 00:45 | ED_ITS ---
HPI - Extremity Problem General Chief complaint: Extremity Injury, Upper Stated complaint: Shoulder pain Time Seen by Provider: 02/21/23 00:44 Source: patient and RN notes reviewed Mode of arrival: ambulatory Limitations: no limitations History of Present Illness HPI Narrative: 43-year-old male presents for evaluation of right shoulder pain. Denies any trauma to the area. He reports that he woke up with the pain 5 days ago. His pain is 10/10 it is now ?keeping me from sleeping. ? Denies any fevers or chills. Related Data Previous Rx's Medication Instructions Recorded acetaminophen 650 mg 650 mg PO Q8H PRN pain #30 tabs 07/15/20 tablet,extended release (Tylenol Arthritis Pain) cyclobenzaprine 10 mg tablet 10 mg PO TID PRN muscle spasm #10 07/15/20 tabs lidocaine 5 % topical patch 1 patch topical DAILY #15 ea 07/15/20 (Lidoderm) naproxen 500 mg tablet 500 mg PO BID PRN pain #20 tabs 07/15/20 cyclobenzaprine 5 mg tablet 5 mg PO TID PRN muscle spasm #14 09/23/20 tabs ibuprofen 600 mg tablet 600 mg PO Q6H PRN pain #14 tabs 09/23/20 oxycodone-acetaminophen 5 mg-325 1 tab PO Q6H PRN pain #10 tabs 09/23/20 mg tablet (Percocet) prednisone 20 mg tablet 40 mg PO DAILY #8 tabs 06/29/21 oxycodone 5 mg tablet 5 mg PO Q6H PRN severe pain (scale 02/21/23 score 7-10) #12 tabs Allergies Allergy/AdvReac Type Severity Reaction Status Date / Time No Known Allergies Allergy Verified 02/21/23 00:04 Review of Systems Cardiovascular: Cardiovascular: Denies chest pain and Denies chest pain at rest Musculoskeletal: Musculoskeletal: Reports arthralgias, Denies joint swelling and Reports limited range of motion PMFSH Past Medical History Medical History COPD (chronic obstructive pulmonary disease) Pancreatitis Social History Social History Alcohol intake: current Alcohol intake frequency: does not drink Current occupational status: employed Current occupation: CONSTRUCTION Physical Exam Vital Signs: Vital Signs: Last Vital Signs Temp 97.0 F 02/21/23 00:04 Pulse 62 02/21/23 00:04 Resp 16 02/21/23 00:04 BP 148/82 H 02/21/23 00:04 Pulse Ox 95 02/21/23 00:04 O2 Del Method Room Air 02/21/23 00:04 BMI result Body Mass Index 27.5 Const: General: healthy appearing, comfortable, no acute distress, alert and awake Nutritional Appearance: well nourished Orientation/consciousness: patient oriented x3 HEENT: Head: Yes normocephalic and Yes atraumatic Eyes: Eyelids: Yes eyelids normal Conjunctivae: conjunctivae normal Sclerae: sclerae normal Corneas: corneas normal Pupils: Equal, round and reactive pupils present EOM: EOMs intact bilaterally Neck: Neck: Yes full ROM Resp: Effort & Inspection: normal respiratory effort, able to speak in complete sentences and not labored Cardio: Rate: regular rate Rhythm: regular rhythm Skin: General skin exam: no rashes or lesions noted and elasticity normal Neuro: General: patient oriented x3 Cranial nerves: Yes Equal, round and reactive pupils present and Yes Bilaterally intact EOM present Cognition (Neuro): normal cognition Extrem: Other: Patient has tenderness of the right acromioclavicular joint. No palpable deformities. No significant edema or overlying skin changes. No right posterior rotator cuff tenderness. Medical Decision Making Medical Decision Making MDM Narrative: 43-year-old male presents for evaluation of atraumatic right shoulder pain. X- ray shows mild degenerative changes. Will treat the patient's pain and he will be referred to orthopedics. He was also given a sling Differential Diagnosis Shoulder sprain Shoulder strain Arthritis Calcific tendinitis Shoulder bursitis Radiology Impression Discussion of test interpretation with radiology: I have reviewed the radiologist's reading. Radiologist Impression: Mild arthritic changes of the right acromioclavicular joint Discharge Plan Discharge Clinical Impression: Acute pain of right shoulder Patient Disposition: Home, Self-Care Instructions: Shoulder Pain (ED) Additional Instructions: Your x-ray showed mild arthritis of the right shoulder. This is likely contributing to her pain. You should continue to use ibuprofen and Tylenol for her pain Use oxycodone for more severe breakthrough pain. This may make you sleepy, did not drink alcohol or drive after taking it Follow-up with orthopedics as number provided the number provided Prescriptions: New oxycodone 5 mg tablet 5 mg PO Q6H PRN (Reason: severe pain (scale score 7-10)) Qty: 12 0RF Rx Instructions: Partial Fill upon patient request. No Action cyclobenzaprine 10 mg tablet 10 mg PO TID PRN (Reason: muscle spasm) Qty: 10 0RF acetaminophen [Tylenol Arthritis Pain] 650 mg tablet extended release 650 mg PO Q8H PRN (Reason: pain) Qty: 30 0RF lidocaine [Lidoderm] 5 % adhesive patch,medicated 1 patch topical DAILY Qty: 15 0RF Rx Instructions: leave on most painful area for up to 12 hrs naproxen 500 mg tablet 500 mg PO BID PRN (Reason: pain) Qty: 20 0RF cyclobenzaprine 5 mg tablet 5 mg PO TID PRN (Reason: muscle spasm) Qty: 14 0RF oxycodone-acetaminophen [Percocet] 5-325 mg tablet 1 tab PO Q6H PRN (Reason: pain) Qty: 10 0RF ibuprofen 600 mg tablet 600 mg PO Q6H PRN (Reason: pain) Qty: 14 0RF prednisone 20 mg tablet 40 mg PO DAILY Qty: 8 0RF Referrals: Savana Boyd MD [Physician] - (right shoulder pain)
[2023-02-21] MEDS: Ketorolac Tromethamine 30 MG/ML VIAL IM (01:22)
[2023-02-21] MEDS: oxyCODONE HCl Immed Release 5 MG TABLET PO (01:22)
--- NOTE | 2023-02-21 01:28 | PC.NURSE ---
Sling applied, medicated per MAR.
== END 2023-02-21 01:29 | disposition home or self-care (01) ==
PROVIDERS: Emergency Provider Emergency Medicine
DX: M25.511 Pain in right shoulder (principal)
CPT/HCPCS: 73030; 96372; 99283; 99284; J1885

== ENCOUNTER 2023-09-09 08:19 | Emergency (ER) | payer OTHER, SELFPAY ==
[2023-09-09 08:22] VITALS: BP 136/79; PULSE 88; RESP 16; TEMP 36.6; O2SAT 98; BMI 27.8
--- NOTE | 2023-09-09 10:18 | ED.EXTPRO ---
HPI - Extremity Problem General Chief complaint: Extremity Injury, Upper Stated complaint: R shoulder pain Time Seen by Provider: 09/09/23 09:20 Source: patient Mode of arrival: ambulatory Limitations: no limitations History of Present Illness HPI Narrative: 43-year-old male with history of hypothyroidism presents to ED for right shoulder pain for the past 3 months. Patient states shoulder pain hurts on movement and doing external rotation, and when using weights at the gym. Patient states he had to stop doing weights due to right shoulder pain. Patient thinks right arm is smaller than left. Patient denies any swelling of extremity, chest pain, erythema, bluish/black discloration, numbness/tingling, paralysis, weakness, or any other concerning symptoms. Patient states constant pain for the past 3-4 months. Patient's secondary complaint is that he has been without his Synthroid for couple of months. Patient states his recent blood work indicated that he needs thyroid medication. Related Data Previous Rx's Medication Instructions Recorded acetaminophen 650 mg 650 mg PO Q8H PRN pain #30 tabs 07/15/20 tablet,extended release (Tylenol Arthritis Pain) cyclobenzaprine 10 mg tablet 10 mg PO TID PRN muscle spasm #10 07/15/20 tabs lidocaine 5 % topical patch 1 patch topical DAILY #15 ea 07/15/20 (Lidoderm) naproxen 500 mg tablet 500 mg PO BID PRN pain #20 tabs 07/15/20 cyclobenzaprine 5 mg tablet 5 mg PO TID PRN muscle spasm #14 09/23/20 tabs ibuprofen 600 mg tablet 600 mg PO Q6H PRN pain #14 tabs 09/23/20 oxycodone-acetaminophen 5 mg-325 1 tab PO Q6H PRN pain #10 tabs 09/23/20 mg tablet (Percocet) prednisone 20 mg tablet 40 mg (2 x 20 mg) PO DAILY #8 tabs 06/29/21 oxycodone 5 mg tablet 5 mg PO Q6H PRN severe pain (scale 02/21/23 score 7-10) #12 tabs ketorolac 10 mg tablet 10 mg PO QID PRN pain 5 days #20 09/09/23 tabs levothyroxine 75 mcg capsule 75 mcg PO DAILY 16 days #16 caps 09/09/23 oxycodone 5 mg capsule 5 mg PO TID PRN pain 3 days #9 caps 09/09/23 prednisone 20 mg tablet 40 mg (2 x 20 mg) PO DAILY 5 days 09/09/23 #10 tabs Allergies Allergy/AdvReac Type Severity Reaction Status Date / Time No Known Allergies Allergy Verified 02/21/23 00:04 Review of Systems Review of Systems: Right shoulder pain Yes all other systems are reviewed and are negative [facility] Past Medical History Medical History COPD (chronic obstructive pulmonary disease) Pancreatitis Social History Social History Alcohol intake: current Alcohol intake frequency: does not drink Advance Directives: No Advance Directives Information Provided: No Current occupational status: employed Current occupation: CONSTRUCTION Physical Exam Vital Signs: Vital Signs: Last Vital Signs Temp 98 F 09/09/23 08:22 Pulse 88 09/09/23 08:22 Resp 16 09/09/23 08:22 BP 136/79 09/09/23 08:22 Pulse Ox 98 09/09/23 08:22 O2 Del Method Room Air 09/09/23 08:22 BMI result Body Mass Index 27.8 Const: General: cooperative, healthy appearing, comfortable, no acute distress, well developed, alert, awake and Physically active Orientation/consciousness: oriented to person, oriented to place, oriented to time and patient oriented x3 HEENT: Head: Yes normal to inspection, Yes No palpable skull fracture present, Yes normocephalic and Yes atraumatic Eyes: General: appearance normal, both eyes and all related structures Neck: Neck: Yes normal visual inspection, Yes full ROM, Yes no lymphadenopathy, Yes no meningeal signs, Yes trachea midline, Yes supple, No anterior neck swelling and No tender Chest: Chest palpation & inspection: normal inspection of the chest and normal palpation of entire chest wall Resp: Effort & Inspection: normal respiratory effort and able to speak in complete sentences Auscultation: clear to auscultation bilaterally Cardio: Jugular venous distension: no JVD Heart sounds: S1 normal heart sound present and S2 normal heart sound present GI: Inspection: Yes normal to inspection Palpation (GI): Soft to palpation, not firm, nontender, no guarding and not rigid : General: Yes no CVA tenderness Back/Spine/Pelvis: Back: no CVA tenderness and No back tenderness Skin: General skin exam: no rashes or lesions noted, elasticity normal and turgor normal Neuro: General: oriented to person, oriented to place, oriented to time, patient oriented x3, gait normal, tone normal, moves all extremities, Normal light touch and pain sensation, no meningeal signs, no focal motor deficits, CN's II-XI intact bilaterally and normal sensation to monofilament Extrem: General: Yes normal to inspection and Yes full ROM Shoulder/upper arm images: 1. Positive for tenderness on palpation. Positive for shoulder pain on range of motion. Negative for crepitus, deformity, bluish black disolocration, swelling or erythema. Motor, neuro,/vascular exam intact on exam. arm / extremity is not atrophy. Psych: Appearance: grossly normal, well kempt and not disheveled Medications Administered Discontinued Medications Generic Name Dose Route Start Last Admin Trade Name Freq PRN Reason Stop Dose Admin Ketorolac Tromethamine 30 mg 09/09/23 09:59 09/09/23 10:19 Ketorolac Tromethamine 30 Mg/Ml Vial IM 09/09/23 10:00 30 mg ONCE ONE Administration Oxycodone HCl 10 mg 09/09/23 09:59 09/09/23 10:19 Oxycodone Hcl Immed Release 5 Mg Tablet PO 09/09/23 10:00 10 mg ONCE ONE Administration Prednisone 60 mg 09/09/23 09:59 09/09/23 10:19 Prednisone 20 Mg Tablet PO 09/09/23 10:00 60 mg ONCE ONE Administration Medical Decision Making Medical Decision Making [facility] Narrative: 43-year-old male presents to ED for chronic right shoulder pain for 3-4 months without any trauma. Shoulder pain worse on movement. Patient states every time he lifts with shoulder he has pain. Negative for any swelling redness, erythema, ecchymosis, bluish discoloration, deformity, or crepitus on exam. Patient's shoulder x-ray last February showed AC joint arthritis where patient is tender on palpation. Not suspecting fracture. no need for any repeat x-ray. Not suspecting DVT, cellulitis, compartment syndrome, osteomyelitis, or arterial occlusion. Patient's secondary complaint is being without his thyroid medication for a couple of months and recent blood test stated he needed his Synthroid. Patient well-appearing and is not cachectic. Patient has good weight. Will prescribe his Synthroid. Patient educated to follow-up with orthopedic for PT. Patient informed he may need MRI to make sure there is no ligament, shoulder muscle, or labrum tears or nerve impingement. Patient given Toradol, oxycodone, and prednisone Differential Diagnosis Differential Diagnoses: The differential diagnosis associated with the presentation includes ( shoulder fracture, shoulder dislocation, chronic shoulder pain, rotator cuff muscle tear, ligament tear) Admission/Observation Consideration of admission/observation: Escalation of care including admission/observation considered External Record Review External record reviewed: Other (previous visist) Tests considered The following testing was considered but not selected: xray Prescription Management I considered prescription management with: Pain Medication and Other (synthroid) Discharge Plan Discharge Clinical Impression: Medication refill, Chronic shoulder pain, Degenerative arthritis Patient Disposition: Home, Self-Care Instructions: Arthralgia (ED), Shoulder Pain (ED), Medicine Refill (ED) Additional Instructions: call your orthopedic for earlier appointment. Most likely you will need a MRI of the shoulder and also physical therapy. Return to the ED immediately for swelling of right upper extremity, bluish black discoloration, erythema, severe pain, weakness, tingling, chest pain, shortness of breath, stiffness of shoulder, or any other concerning symptoms. Also recommend follow-up with the primary care provider for management of your thyroid medications. Do not take any other NSAIDs while taking Toradol. Prescriptions: New ketorolac 10 mg tablet 10 mg PO QID PRN (Reason: pain) 5 Days Qty: 20 0RF Rx Instructions: received 30mg IM Toradol in the ED. prednisone 20 mg tablet 40 mg PO DAILY 5 Days Qty: 10 0RF oxycodone 5 mg capsule 5 mg PO TID PRN (Reason: pain) 3 Days Qty: 9 0RF Rx Instructions: Partial Fill upon patient request. levothyroxine 75 mcg capsule 75 mcg PO DAILY 16 Days Qty: 16 0RF No Action cyclobenzaprine 10 mg tablet 10 mg PO TID PRN (Reason: muscle spasm) Qty: 10 0RF acetaminophen [Tylenol Arthritis Pain] 650 mg tablet extended release 650 mg PO Q8H PRN (Reason: pain) Qty: 30 0RF lidocaine [Lidoderm] 5 % adhesive patch,medicated 1 patch topical DAILY Qty: 15 0RF Rx Instructions: leave on most painful area for up to 12 hrs naproxen 500 mg tablet 500 mg PO BID PRN (Reason: pain) Qty: 20 0RF cyclobenzaprine 5 mg tablet 5 mg PO TID PRN (Reason: muscle spasm) Qty: 14 0RF oxycodone-acetaminophen [Percocet] 5-325 mg tablet 1 tab PO Q6H PRN (Reason: pain) Qty: 10 0RF ibuprofen 600 mg tablet 600 mg PO Q6H PRN (Reason: pain) Qty: 14 0RF prednisone 20 mg tablet 40 mg PO DAILY Qty: 8 0RF oxycodone 5 mg tablet 5 mg PO Q6H PRN (Reason: severe pain (scale score 7-10)) Qty: 12 0RF Rx Instructions: Partial Fill upon patient request. Interventions: ED Discharge Assessment Last Done: 09/09/23 10:43 Discharge Date/Time: 09/09/23 10:45 Print Language: Citizen [place]
[2023-09-09] MEDS: Ketorolac Tromethamine 30 MG/ML VIAL IM (10:19)
[2023-09-09] MEDS: oxyCODONE HCl Immed Release 5 MG TABLET 10 MG PO (10:19)
[2023-09-09] MEDS: predniSONE 20 MG TABLET 60 MG PO (10:19)
== END 2023-09-09 10:45 | disposition home or self-care (01) ==
PROVIDERS: Emergency Provider Emergency Medicine Emergency Medical Services; PCP Internal Medicine
DX: M19.011 Primary osteoarthritis, right shoulder (principal); M25.511 Pain in right shoulder; G89.29 Other chronic pain; Z76.0 Encounter for issue of repeat prescription; Z79.899 Other long term (current) drug therapy
CPT/HCPCS: 96372; 99283; 99284; J1885

== ENCOUNTER 2023-09-15 09:53 | Outpatient (AMB) | payer OTHER, SELFPAY ==
--- NOTE | 2023-09-15 09:55 | A.OFFVIS_ITS ---
Intake Vital Signs 09/15/23 10:20 Height 5 ft 6 in Weight 171 lb BMI 27.6 Intake Visit Reasons: ov- Right shoulder pain Intake Note: Erick silva 43 year old male presents today for an evaluation of right shoulder pain. Patient reports constant pain that has been present for years that has been getting worse the past 3 months. Denies injury, numbness or tingling. States pain radiates down his arm to his wrist. Limited ROM. No previous tx. No relief with naproxen, Motrin or Tylenol. Allergies No Known Allergies Allergy (Verified 09/15/23 10:20) Medication List - Last Reconciled 09/15/23 by Patricia Gray PA-C acetaminophen ER (Tylenol Arthritis Pain) 650 mg PO Q8H PRN albuterol sulfate 90 mcg/actuation (Ventolin HFA) inhalation cyclobenzaprine 10 mg PO TID PRN cyclobenzaprine 5 mg PO TID PRN ibuprofen 600 mg PO Q6H PRN ketorolac 10 mg PO QID PRN 5 days levothyroxine 75 mcg PO DAILY 16 days levothyroxine 75 mcg PO DAILY lidocaine 5% (Lidoderm) 1 patch topical DAILY naproxen 500 mg PO BID PRN oxycodone 5 mg PO Q6H PRN oxycodone 5 mg PO TID PRN 3 days oxycodone-acetaminophen 5-325 mg (Percocet) 1 tab PO Q6H PRN prednisone 40 mg (2 x 20 mg) PO DAILY prednisone 40 mg (2 x 20 mg) PO DAILY 5 days HPI ov- Right shoulder pain HPI Details 43 yo male presents to the office today for right shoulder pain x 4 months. He denies injury. He states he has pain that starts in the right shoulder which extends down the arm into the bicep. He c/o n/t which extends down the the wrist. He states it is constant. He has pain with sleeping. He has pain with reaching. [facility] Medical History COPD (chronic obstructive pulmonary disease) Pancreatitis Social History (Updated 09/15/23 @ 10:00 by Melodie Natarajan Pamella) Alcohol intake: current Alcohol intake frequency: does not drink Current occupational status: unemployed Current occupation: right hand dominant Review of Systems Const All systems reviewed & are unremarkable except as noted in HPI and below Physical Exam Const General: cooperative and no acute distress Orientation/consciousness: patient oriented x3 Resp Effort & Inspection: normal respiratory effort and able to speak in complete sentences Cardio Peripheral pulses: Peripheral pulses 2+ throughout Neuro General: patient oriented x3 Extrem Other: Right shoulder normal to inspection. Tenderness over the bicipital groove and along deltoid region of the shoulder. Hypersensitivity along the biceps region there is no defect noted along the distal biceps tendon. FF to 90, ER to 45, IR to back pocket. Pain with rotator cuff strength testing. NVI. Office Procedures Joint Injection/Drain Joint Injection/Drain Primary Site: right shoulder Prep: site was prepped using aseptic technique, ethochloride spray was applied and injection warnings given Injected: 80 mg of, DepoMedrol, with 8 mL of, 1% plain lidocaine and in the subcromial space Approach Used: posterolateral Procedure: The patient tolerated the procedure well and there was some relief with the local anesthesia Coding 70737 - Glenohumeral/Tronchanteric Bursa/Intraarticular Procedure code (CPT) selection complete Results Reviewed Results Reviewed: X-rays of the right shoulder obtained on 02/21/2023 are negative for any acute or chronic abnormalities Assessment & Plan Assessment & Plan (1) Right shoulder tendonitis: Code(s): M77.8 - Other enthesopathies, not elsewhere classified Plan We discussed options today, which include steroid injection. The patient did consent to move forward with the injection, which was tolerated well.? I recommended rest, ice and elevation and OTC antiinflammatories prn for discomfort. An MRI was also ordered to further evaluate the integrity of the rotator cuff and surrounding structures. He did seem a bit upset toward the end of the visit, mentioning he did not like [facility] and no one tries to help him . I did reassure him that I am here to help him and the point of the MRI is to get to the source of the problem. He appears content with this plan and will f/u once the scan is complete. Coding Level of Care Code New Pt Level 3 (05475) Diagnoses Right shoulder tendonitis M77.8 CPT Codes Coding - Joint 7: 31812 - Glenohumeral/Tronchanteric Bursa/Intraarticular ([id number])
[2023-09-15 10:20] VITALS: BMI 27.6
== END 2023-09-15 10:27 | disposition home or self-care (01) ==
PROVIDERS: Visit Provider Physician Assistant
DX: M77.8 Other enthesopathies, not elsewhere classified (principal)
CPT/HCPCS: 20610; 99213

== ENCOUNTER → 2023-09-15 09:53 | Outpatient (BNVA) | payer OTHER, SELFPAY | PROVIDERS: Visit Provider Physician Assistant | DX: M77.8 Other enthesopathies, not elsewhere classified (principal) | CPT/HCPCS: 20610; 99212; J1040 ==